=== PATIENT | male | born 1940 | race Caucasian/White ===

== ENCOUNTER → 2016-07-20 | Outpatient (CLI) | payer OTHER ==
[~2016-07-20] MED LIST: ADULT LOW DOSE81 MG PO; ALEVE220 MG PO; AVAPRO300 MG PO; COLACE100 MG PO; HYDROCODONE-AP1 EAC6 PO; IMDUR 60 MG TAB60 M1 PO; LIVALO4 MG PO; LOPRESSOR50 PO; OXYCODONE-APAP1 EAC4 PO; PERCOCET 7.5-31 EACH PO; PLAVIX 75 MG TA75 M1 PO; ROBAXIN 750 MG750 M1 PO; TOPROL XL50 MG PO
[2016-07-20 09:02] LABS: CREATININE 1.8 mg/dL (0.7-1.3)
== END ==
LOC: CAT 08:09
PROVIDERS: Nuclear Medicine Nuclear Cardiology
DX: I71.4 Abdominal aortic aneurysm, without rupture (principal); Z95.828 Presence of other vascular implants and grafts

== ENCOUNTER 2016-11-16 18:16 | Inpatient (IN) | payer OTHER ==
[~2016-11-16] VITALS: Ht 177.8 cm; Wt 84.8 kg
--- NOTE | ~2016-11-16 | S ---
[facility] [place] [address] SURGICAL PATH RPT PROCEDURE Name: DEB GARCIA Room #: 305-P [facility] IN M.R.#: [id number] Admission: 11/16/16 Date of : 36 Discharge: 11/19/16 Report #: [id number] Path Case #: [id number] PATHOLOGY REPORT COLLECTION DATE: 11/18/2016 RECEIVED DATE: 11/21/2016 SUBMITTING PHYS: Dr. Kaiden Oscar OTHER PHYS: Dr. 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 COMMENT: This case is co-reviewed by Dr. Martínez Rosado. PATHOLOGIST: Castillo Lange M.D. REPORT ELECTRONICALLY SIGNED BY: Castillo Lange M.D. DATE/TIME: 11/23/2016 14:46 * * * * * * * * * * * * GROSS PATHOLOGY: Received in formalin labeled "TRENT Haque of papilla," are 2 segments of becerril soft tissue measuring 0.6 x 0.2 x 0.2 cm in aggregate dimensions and ranging from 0.2 to 0.4 cm in maximum dimension. The specimen is submitted entirely in cassette A1. (TSD; 11/21/2016) CLINICAL HISTORY: Pre-OP DX: Jaundice Post OP DX: ERCP, sphincteromy, BX INITIAL CPT CODE(S): A; 59110 Professional services performed by [facility] at [facility] [address] [facility] , [place] [address] Technical services performed by [facility] at [address] [place] [address], [address] [address]. [facility] [address] [place] [address] SURGICAL PATH RPT PROCEDURE Name: DEB GARCIA Room #: 305-P [facility] IN .R.#: [id number] Admission: 11/16/16 Date of : 38 Discharge: 11/19/16 Report #: [id number] Path Case #: [id number] [facility] [address] [address] PHONE: [phone] DIRECTOR: Marco Antonio Rodriguez M.D. * * * END OF REPORT * * *
--- NOTE | ~2016-11-16 | HC ---
[facility] [place] [address] CONSULTATION Name: DEB GARCIA Room #: 305-P [facility] IN .R.#: [id number] Admission: 11/16/16 Attend Phys: Gianni Shields DO Discharge: Date of : 38 Report #: [id number] THIS REPORT FOR: //name// CC: Clint Shields DO DATE OF SERVICE: 11/17/2016 He is a patient of Dr. Clint Ren and Dr. Zana Lucas and Dr. Gianni Shields. CHIEF COMPLAINT: 1. The patient is a very pleasant 76-year-old white male who has been experiencing gradually worsening jaundice that he was unaware of, over the past month. The associated symptoms during that time were pain that developed about 1-1/2 to 2 hours after eating, but sometimes the pain developed without any association with eating, so thoroughly unpredictable. He states his urine has been very dark brown colored and his stools are very light in color or acholic in appearance. He has lost approximately 15 to 20 pounds in the past month unintentionally. He has been trying to figure out ways to eat without having the pain start, but he has been very unsuccessful in nailing down what particular foods are bothering him the most. He also notes that he developed gastroesophageal reflux symptoms after every meals. He states his appetite is good, but he cannot figure out what to eat, to avoid symptoms from developing. This sounds like choledocholithiasis to me. 2. Thoracic aortic aneurysm. 3. Abdominal aortic aneurysm with stent graft. The patient has peripheral vascular disease and peripheral arterial disease. He has stents in both of his femoral arteries. He has in the right and left iliac limbs of the stent grafts. He has bilateral external iliac artery nitinol stents. 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 He has a history of hypertension, [id number] smoking history. He has a coronary artery stent. Because of this peripheral vascular disease and central vascular disease, it may be possible and he has mesenteric ischemia as well. He also has renal insufficiency with a creatinine of 1.9. He has proteinuria. He has a macrocytosis with a hemoglobin of 13, an albumin of 2.5, an AST of 71, ALT is 60, and alkaline phosphatase of 433 and total bilirubin of 11.9. MRCP suggest an impacted distal common bile duct stone. RECOMMENDATIONS: My recommendations are as follows: 1. We will get an MRCP to see if we can see anything further about the pancreas and biliary tree before proceeding to ERCP tomorrow. [place] [address] CONSULTATION Name: DEB GARCIA Room #: 305-P [facility] IN .R.#: [id number] Admission: 11/16/16 Attend Phys: Gianni Shields DO Discharge: Date of : 38 Report #: [id number] tomorrow afternoon. The patient had been on Plavix at home, but it was discontinued while he was in the hospital. I am unsure of the precise last dose that he took. We will need to get this data, in order to nail down the timing of the ERCP. 2. We will check INR, chem profile, CBC. 3. We will start Cipro 200 mg IV piggyback q. 12 hours. Thank you very much once again for allowing me to participate in his care, Dr. Ren, Dr. Lucas and Dr. Shields. <ELECTRONICALLY SIGNED> By: Tiffany Cuenca DO 11/18/16 0705 2306 0511 Tiffany Cuenca DO /nt
--- NOTE | ~2016-11-16 | P ---
[facility] [place] [address] PROCEDURE REPORT Name: DEB GARCIA Lucas Room #: 305-P [facility] IN ..#: [id number] Admission: 11/16/16 Attend Phys: Gianni Shields, Discharge: 11/19/16 Date of : 38 Report #: [id number] THIS REPORT FOR: //name// CC: Clint Shields DO DATE OF SERVICE: 11/18/2016 PROCEDURE PERFORMED: ERCP with sphincterotomy, biopsy and balloon sweep. HISTORY OF PRESENT ILLNESS: The patient is a 76-year-old male with intermittent abdominal pain, noted to be jaundiced. He was transferred to [facility] for further evaluation. Bilirubin here 11.9 yesterday, 12.0 today. AST 61, alk phos 427, ALT is 56, and albumin 2.4. WBC 7.3 and hemoglobin 12.8. He underwent an MRCP yesterday, which shows broad termination of the distal common bile duct with characteristic suggesting a distal impacted stone, no definite pancreatic mass was seen. Plan is for ERCP today. PROCEDURE: The risks and benefits of the procedure were explained to the patient, those risks including, but not limited to bleeding, perforation, the risk of sedation as well as potential risk for post-ERCP pancreatitis. The patient understood these risks and gave informed consent. The procedure was performed in the operating room under general anesthesia. The patient has been on Cipro, but 1 gram of Ancef was given prior to the procedure as well, 50 mg indomethacin rectal suppository was given as well. Next, using a standard Etixinon side-viewing ERCP scope, the scope was placed in the patient's mouth and advanced under direct vision into the second portion of the duodenum, at which point the major papilla was identified next to a duodenal diverticulum. The tip of the major papilla appeared adenomas and abnormal. There was no evidence of bile follow. Next, using a Kwame-Cook 0.025 dome tipped sphincterotome catheter, initially the pancreatic duct was cannulated, mild dilation of the pancreatic duct was noted. I attempted multiple times, eventually I was able to get into the common bile duct. A cholangiogram was then obtained. The common bile duct was significantly dilated throughout down to the level of the papilla. Intrahepatic ducts were dilated as well. No filling defects were noted. At this point, a sphincterotomy was performed and bile began draining. Next, the sphincterotome was removed and a balloon catheter was advanced over the guidewire and several balloon sweeps were performed. There were no stones or debris that was noted on balloon sweeps. A balloon occlusion cholangiogram was obtained, again showing an abrupt stop at the distal common bile duct, which I suspect is due to adenomatous change of the papilla. At this point, the balloon and wire were removed. There was good bile drainage noted. Biopsy of the edge [facility] [address] [place] [address] PROCEDURE REPORT Name: DEB GARCIA Room #: 305-P [facility] IN M.R.#: [id number] Admission: 11/16/16 Attend Phys: Gianni Shields DO Discharge: 11/19/16 Date of : 38 Report #: [id number] of the papilla was obtained. The scope was then withdrawn and the procedure terminated. The patient tolerated the procedure well. IMPRESSION: Markedly dilated intrahepatic ducts as well as a common bile duct down to the level of the papilla. Intraluminally, the major papilla appears to have adenomatous change, I suspect this is causing a blockage at the papilla. Sphincterotomy was performed and there was good bile flow at this time. Biopsies were also obtained. RECOMMENDATIONS: 1. Await biopsies. 2. Follow liver function tests. 3. We will allow area to heal and I would recommend proceeding with an endoscopic ultrasound in the next 3-[address] Quick. Thank you for allowing me to participate in his care. <ELECTRONICALLY SIGNED> By: Kaiden Oscar MD 11/23/16 0802 1744 1852 Kaiden Oscar MD /nt
--- NOTE | ~2016-11-16 | H ---
[facility] [address] [place] [address] HISTORY AND PHYSICAL Name: DEB GARCIA Room #: 305-P [facility] IN M.R.#: [id number] Admission: 11/16/16 Attend Phys: Gianni Shields DO Discharge: Date of : 38 Report #: [id number] THIS REPORT FOR: //name// CC: Clint Shields DATE OF SERVICE: 11/16/2016 ATTENDING PHYSICIAN: Dr. Lucas. PRIMARY CARE PHYSICIAN: Dr. Clint Ren. CHIEF COMPLAINT: Distal common bile duct obstruction. HISTORY OF PRESENT ILLNESS: The patient is a 76-year-old pleasant male, who initially presented to [facility] with complaints of dizziness and near syncope. He said he really has not felt well over the last month. He has had decreased appetite and has been having severe heartburn every time he tries to eat; therefore, he has been cutting back on all oral intake. He has had occasional vomiting. He denies any abdominal pain. He has been feeling dizzy for over the last week. Today he was at [facility] and he had an episode of dizziness that made him sit down because he thought he was going to pass out. He tried to get to his car and drive home, but he felt to weak and dizzy to safely drive home, so he pulled over and had to call for help. He was taken to [facility] and his initial blood pressure was in 90s. He was noted to have significantly elevated bilirubin on the initial labs. Therefore, ultrasound and CT of abdomen were done, which did show biliary ductal dilatation and likely obstruction and he was sent to [facility] for further evaluation. In retrospect, he has noticed that he has been very itchy lately. He had not noticed any rash. His PCP that saw him initially today, pointed out that he was very jaundiced, but the patient had not noticed this himself. He has also had some light colored stools and dark urine. He has lost at least 20 pounds in the last month because of his decreased intake. He has had occasional vomiting when his heartburn has been severe. Denies any diarrhea. Denies any black or bloody stools. He is currently resting comfortably, in no acute distress. PAST MEDICAL HISTORY: Hypertension, chronic kidney disease, abdominal aortic aneurysm, hyperlipidemia. PAST SURGICAL HISTORY: Inguinal hernia repair, tonsillectomy, bilateral femoral stent placement, aortic stent graft, lumbar surgery x 3. ALLERGIES: None. HOME MEDICATIONS: Plavix 75 mg p.o. daily, Livalo 4 mg daily, Imdur [address] [address] HISTORY AND PHYSICAL Name: JOSEDEB Lucas Room #: 305-P [facility] IN M.R.#: [id number] Admission: 11/16/16 Attend Phys: Gianni Shields DO Discharge: Date of : 38 Report #: [id number] daily, metoprolol 50 mg daily, irbesartan 300 mg daily, aspirin 81 mg daily naproxen p.r.n. SOCIAL HISTORY: The patient smokes 1 pack of cigarettes per day, has been smoking for about 50 years. He drinks alcohol very rarely. Denies any drug use. He lives at home alone. He ambulates independently and he remains very active. FAMILY HISTORY: His grandfather had some sort of cancer. His father of brain cancer. His brother of lung cancer. His mother of pneumonia. REVIEW OF SYSTEMS: The patient was previously seen here at [facility] for an infrarenal and iliac artery aneurysms for which he had an aortic stent graft placed about 6-8 months ago. He was noted at that time to have elevated creatinine and by the time of discharge, his creatinine was 1.8. He was supposed to follow up with Nephrology outpatient, but he says he never made that appointment. He denies any history of diabetes. He denies any history of heart disease or coronary stents or any recent chest pain. All other 12-point review of systems was reviewed with the patient, otherwise negative unless stated in the HPI. PHYSICAL EXAMINATION: GENERAL: The patient is an alert male, in no acute distress. VITAL SIGNS: Temperature is 36.4, heart rate 56, respirations 16, blood pressure 132/73, oxygen 98% on room air. HEENT: PERRLA. Sclerae is icteric. Oral mucosa is pink and moist. NECK: Supple, no JVD noted. CARDIAC: Normal S1, S2. No murmurs, rubs or gallops. He is bradycardia. RESPIRATORY: Breath sounds are clear bilaterally. No wheezing or rhonchi. Breathing is nonlabored. ABDOMEN: Flat, nondistended, he is completely nontender with positive bowel sounds. VASCULAR: No edema noted. Pedal pulses are 2+. NEUROLOGIC: The patient is alert and oriented x 3. Speech is clear. He is moving all extremities equally. No focal weakness noted. SKIN: Intact. No open wound or rash noted. He is jaundiced throughout. LABORATORY DATA AND DIAGNOSTICS: WBC is 9.9, hemoglobin 14, platelets 223. Sodium 139, potassium 4.0, BUN 22, creatinine 2.2, glucose 156, anion gap was 19. AST 70, alkaline phos 514, albumin 2.9. Bilirubin 15.9. INR 1.17. Alcohol level was negative. Lipase 137. CT of abdomen showed gallbladder distention with intrahepatic and extrahepatic biliary ductal dilatation without any gallstones. There was question of an obstructive process at the level of the ampulla. Abdominal ultrasound showed intrahepatic biliary ductal dilatation, no liver lesions. There was also dilated common bile duct up to 13 mm. The gallbladder was distended with sludge and stones, but there is no [facility] [address] [place] [address] HISTORY AND PHYSICAL Name: KATHERINEOLIANETTEDEB Lucas Room #: 305-P [facility] IN [facility]#: [id number] Admission: 11/16/16 Attend Phys: Gianni Shields DO Discharge: Date of : 38 Report #: [id number] gallbladder wall thickening. ASSESSMENT AND PLAN: 1. Distal common bile duct obstruction. This may be due to stone versus a mass. This patient does have associated painless jaundice. We will consult GI for further evaluation as he likely need an ERCP. We will keep him n.p.o. and start IV fluids and follow labs. We will provide Benadryl for the itching, check a CA 19-9 tumor marker. 2. Chronic kidney disease stage III. Last known creatinine was 1.8 in 06/2016. He was supposed to follow up with Nephrology outpatient, but he has not, we will start IV fluids and follow labs. 3. . Blood pressure at [place] initially was low, likely due to decreased p.o. intake recently. We will hold his blood pressure meds at this time and continue to monitor. 4. Hyperglycemia. The patient denies any history of diabetes. Check hemoglobin A1c. 5. Ongoing tobacco abuse. The patient has been advised to quit. We will provide a nicotine patch. 6. Recent aortic stent graft and bilateral femoral stents. Continue with Plavix, which will need to be stopped if surgery is needed. 7. Deep venous thrombosis prophylaxis. Place sequential compression devices. We will continue to follow the patient closely throughout the hospitalization and make changes based on clinical status. <ELECTRONICALLY SIGNED> By: RADHA August 11/17/16 0652 0432 0557 RADHA August /timoteo
[2016-11-16 20:00] VITALS: BP 132/73
[2016-11-17] VITALS: BP 139/67
[2016-11-17 04:00] VITALS: BP 137/64
[2016-11-17 06:21] LABS: HEMOGLOBIN 12.5 gm/dL (14.0-18.0); MCH 35.3 pg (26.0-34.0); MCHC 34.8 g/dL (28.0-37.0); MCV 101.4 fL (80.0-100.0); RBC 3.55 mil/uL (4.50-6.00); RDW 15.8 % (10.5-14.5); WBC 6.9 thou/uL (4.0-11.0)
[2016-11-17 06:36] LABS: PROTIME 10.7 Seconds (9.3-11.4)
[2016-11-17 06:42] LABS: ALBUMIN 2.5 g/dL (3.4-5.0); CALCIUM 8.7 mg/dL (8.5-10.1); CREATININE 1.9 mg/dL (0.7-1.3); POTASSIUM 3.6 mmol/L (3.5-5.1); TOTAL BILIRUBIN 11.9 mg/dL (<0.1-1.0); TOTAL PROTEIN 5.9 g/dL (6.4-8.2)
[2016-11-17 07:25] VITALS: BP 140/69
[2016-11-17 10:08] LABS: URINE BILIRUBIN 3+ (Negative); URINE BLOOD TRACE (Negative); URINE COLOR YELLOW; URINE GLUCOSE-RANDOM* TRACE (Negative); URINE KETONES NEGATIVE (Negative); URINE NITRITE NEGATIVE (Negative); URINE PROTEIN (DIPSTICK) 1+ (Negative)
[2016-11-17 10:10] LABS: ICTOTEST (BILI CONFIRMATORY) Positive (Negative)
[2016-11-17 10:14] LABS: AMORPHOUS URATES Few /LPF (None Seen); BACTERIA 1-9 Few /HPF (None Seen); CRYSTALS None Seen /LPF (None Seen); HYALINE CASTS 0-3 Few /LPF (None Seen); SQUAMOUS 0-3 Few /LPF (0-3); URINE RBC None Seen /HPF (0-2); URINE WBC 0-5 Rare /HPF (0-5)
[2016-11-17 15:22] VITALS: BP 153/67
[2016-11-17 19:05] VITALS: BP 145/58
[2016-11-18] VITALS (7 sets, daily range): BP systolic 135–179; BP diastolic 60–78
[2016-11-18 02:11] LABS: GLYCOHEMOGLOBIN (HGB A1C) 4.8 % (4.8-5.6)
[2016-11-18 03:49] LABS: ALBUMIN 2.4 g/dL (3.4-5.0); DIRECT BILIRUBIN 9.8 mg/dL (<0.1-0.3)
[2016-11-18 04:01] LABS: ABSOLUTE NEUTROPHILS 4.8 thou/uL (1.4-8.2); BASOPHILS 0.7 % (0.0-2.0); EOSINOPHILS 4.3 % (0.0-3.0); HEMATOCRIT 36.8 % (42.0-52.0); HEMOGLOBIN 12.8 gm/dL (14.0-18.0); MCH 35.4 pg (26.0-34.0); MCHC 34.8 g/dL (28.0-37.0); MCV 101.7 fL (80.0-100.0); MONOCYTES 9.4 % (1.0-8.0); PLATELET COUNT 214 thou/uL (150-400); POLYS 65.6 % (36.0-66.0); RBC 3.61 mil/uL (4.50-6.00); WBC 7.3 thou/uL (4.0-11.0)
[2016-11-18 04:33] LABS: MANUAL DIFF NO
[2016-11-19 03:43] VITALS: BP 129/60
[2016-11-19 06:57] VITALS: BP 158/73
[2016-11-19 07:17] LABS: HEMATOCRIT 36.7 % (42.0-52.0); HEMOGLOBIN 12.8 gm/dL (14.0-18.0); MCH 35.4 pg (26.0-34.0); MCHC 34.9 g/dL (28.0-37.0); MCV 101.5 fL (80.0-100.0); RBC 3.61 mil/uL (4.50-6.00); RDW 16.7 % (10.5-14.5); WBC 6.7 thou/uL (4.0-11.0)
[2016-11-19 07:28] LABS: ALBUMIN 2.4 g/dL (3.4-5.0); CALCIUM 8.5 mg/dL (8.5-10.1); CREATININE 1.7 mg/dL (0.7-1.3); POTASSIUM 3.7 mmol/L (3.5-5.1); TOTAL BILIRUBIN 13.9 mg/dL (<0.1-1.0)
[2016-11-19 08:08] LABS: TOTAL PROTEIN 6.1 g/dL (6.4-8.2)
[2016-11-19 12:07] VITALS: BP 158/73
== END 2016-11-19 12:36 | disposition home or self-care (01) | DRG 444 ==
LOC: 3N 18:16
PROVIDERS: Hospitalist; Internal Medicine Gastroenterology; Nurse Practitioner Acute Care
DX: K80.51 Calculus of bile duct without cholangitis or cholecystitis with obstruction (principal); E43 Unspecified severe protein-calorie malnutrition; I12.9 Hypertensive chronic kidney disease with stage 1 through stage 4 chronic kidney disease, or unspecified chronic kidney disease; E78.5 Hyperlipidemia, unspecified; F17.210 Nicotine dependence, cigarettes, uncomplicated; N18.3 Chronic kidney disease, stage 3 (moderate); I73.9 Peripheral vascular disease, unspecified; E78.00 Pure hypercholesterolemia, unspecified; I25.10 Atherosclerotic heart disease of native coronary artery without angina pectoris; I71.2 Thoracic aortic aneurysm, without rupture; Z90.49 Acquired absence of other specified parts of digestive tract; Z80.8 Family history of malignant neoplasm of other organs or systems; Z83.6 Family history of other diseases of the respiratory system; Z98.42 Cataract extraction status, left eye; Z98.41 Cataract extraction status, right eye; Z68.26 Body mass index [BMI] 26.0-26.9, adult; Z95.5 Presence of coronary angioplasty implant and graft
CPT/HCPCS: 10096; 62110; 62900; 70005

== ENCOUNTER 2016-11-25 13:57 | Inpatient (IN) | payer OTHER ==
[~2016-11-25] VITALS: Ht 177.8 cm; Wt 88.2 kg
--- NOTE | ~2016-11-25 | HC ---
[facility] [place] [address] CONSULTATION Name: STEVEANETTEDEB D Room #: 440-P [facility] IN .R.#: [id number] Admission: 11/25/16 Attend Phys: Ricky Rice MD Discharge: 11/30/16 Date of : 38 Report #: [id number] THIS REPORT FOR: //name// CC: Dr. Clint Rice REASON FOR CONSULTATION: The patient is a 76-year-old male with worsening jaundice. HISTORY OF PRESENT ILLNESS: This patient was admitted to [facility] about a week ago. He was found to have obstructive jaundice. Interestingly, he did not have severe pain, but described a heartburn pain in the epigastrium, which has been worsening in the past 4-5 weeks. He underwent evaluation and was found to have a dilated biliary tree. He underwent an ERCP by Dr. Oscar a week ago today. He is noted to have a prominent papilla, which was biopsied. Biopsies revealed this to be a villous adenoma, but there was no evidence of high grade dysplasia or malignancy. A sphincterotomy was completed. Dr. Oscar did multiple balloon sweeps of the duct and no stones or filling defects were identified. He noted there was excellent drainage following the sphincterotomy. The patient went home, reports that initially he thought he was doing better, but now he is becoming more and more jaundiced. He is having more and more pruritus. He contacted the office and was directed to the Emergency Room where he was evaluated today. Laboratory studies today revealed that his bilirubin was ____ last week and is now 17.8. His alkaline phosphatase was 429, now 532. His AST is a little higher at 78 and ALT is normal at 61. He also reports that he has lost about 15 pounds in the recent months. Ultrasound of the abdomen today revealed a distended gallbladder with sludge with intrahepatic and extrahepatic ductal dilation, raising the possibility of a distal duct obstruction. He has not had any fever or chills. PAST MEDICAL HISTORY: He has had a high blood pressure. He has peripheral vascular disease and stents in his legs and his aorta. He has elevated lipids. He has been a long-term cigarette smoker. PAST SURGICAL HISTORY: Tonsillectomy, lumbar discectomy, cataract surgery, oral surgeries, stent placement in the aorta and femoral arteries. ALLERGIES: No known drug allergies. USUAL MEDICATIONS: Metoprolol 50 mg daily, Plavix 75 mg daily, aspirin 81 mg daily, Livalo 4 mg daily, Avapro 300 mg daily, Imdur 60 mg daily, naproxen 220 mg as needed. FAMILY HISTORY: No family history of colon cancer or ulcer disease. [address] [address] CONSULTATION Name: DEB GARCIA Room #: 440-P [facility] IN ..#: [id number] Admission: 11/25/16 Attend Phys: Ricky Rice MD Discharge: 11/30/16 Date of : 38 Report #: [id number] SOCIAL HISTORY: He continues to smoke. He does not consume alcohol. REVIEW OF SYSTEMS: GENERAL: No change in weight, fever or chills. CENTRAL NERVOUS SYSTEM: No weakness, numbness or loss of consciousness. ENT: No change in vision or hearing or sores in the mouth. PULMONARY: long term care administrator smoker. He denies cough at this time. CARDIOVASCULAR: No chest pain, chest tightness, but he does have significant peripheral vascular disease and aortic vascular disease. GASTROINTESTINAL: Increasing heartburn symptoms. GENITOURINARY: Without dysuria or pyuria. MUSCULOSKELETAL: Previous back surgery. No arthralgias or myalgias at this time. SKIN: Pruritus with the jaundice. HEMATOLOGIC: No bruising, bleeding or malignancies. ENDOCRINE: He is not aware of diabetes or thyroid problems. PHYSICAL EXAMINATION GENERAL: The patient is a well-developed, well-nourished, pleasant male in no acute distress. He is markedly jaundiced. VITAL SIGNS: Blood pressure 138/62. HEENT: He is anicteric. Pupils equal and round. Oropharynx clear. NECK: Supple. CHEST: Clear. HEART: Regular rate and rhythm, normal S1 and normal S2. ABDOMEN: Normal bowel sounds, soft, nontender, without hepatosplenomegaly or masses. RECTAL: Not done. EXTREMITIES: Without cyanosis, clubbing, edema. ASSESSMENT: 1. Obstructive jaundice, worsening. 2. Villous adenoma of the duodenal papilla, status post sphincterotomy. 3. Peripheral vascular disease. 4. Chronic obstructive pulmonary disease. COMMENT: Discussed with Dr. Oscar. He will see the patient tomorrow and likely place a biliary stent. Ultimately, he will need further evaluation such as endoscopic ultrasound and may be a papillectomy due to the villous changes of the duodenal papilla. Even though the biopsies were benign, there still may be a malignancy within the papilla. PLAN: 1. ERCP with stent placement tomorrow. [facility] [address] [place] [address] CONSULTATION Name: DEB GARCIA Lucas Room #: 440-P [facility] IN M.R.#: [id number] Admission: 11/25/16 Attend Phys: Ricky Rice MD Discharge: 11/30/16 Date of : 38 Report #: [id number] 2. IV antibiotics. 3. Atarax for itching. <ELECTRONICALLY SIGNED> By: Craig Damon MD 12/01/16 1200 1842 1921 Craig Damon MD /nt
--- NOTE | ~2016-11-25 | H ---
[facility] [place] [address] HISTORY AND PHYSICAL Name: JOSEDEB Lucas Room #: 410-P [facility] IN .R.#: [id number] Admission: 11/25/16 Attend Phys: Ricky Rice MD Discharge: Date of : 36 Report #: [id number] THIS REPORT FOR: //name// CC: Clint Rice DATE OF SERVICE: 11/25/2016 CHIEF COMPLAINT: Jaundice, itching, and heartburn. HISTORY OF PRESENT ILLNESS: The patient is a 76-year-old man who was admitted here on 11/17/2016 for painless jaundice. His bilirubin was 13.9 at that time. The patient had MRCP, that showed distal bile duct obstruction. ERCP was performed, that showed no stone, and the patient has sphincterotomy, with balloon dilation. 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 CA 19-9 levels are elevated at 91. The patient went home in stable condition. A few days ago, he noticed worsening in his jaundice, as well as worsening in itching. The patient developed heartburn, abdominal distention, and nausea. He denies vomiting. He has no other complaints. In the Emergency Room, his total bilirubin is elevated again at 17.8, from 13.9 during last admission about a week ago. Alkaline phosphatase is also higher at 532, from 429. PAST MEDICAL HISTORY: 1. Hypertension. 2. Peripheral vascular disease, bilateral femoral stents. 3. Dyslipidemia. 4. AAA repair earlier this year. 5. Chronic kidney disease, stage 3. CURRENT MEDICATIONS: Include Plavix, Avapro, Imdur, metoprolol, naproxen as needed, and Livalo. FAMILY HISTORY: Reviewed and not pertinent to the patient's current condition. SOCIAL HISTORY: The patient is a current smoker. He does not drink alcohol. REVIEW OF SYSTEMS: As above in HPI section, all others negative. PHYSICAL EXAMINATION: GENERAL: The patient is an elderly man who is in no apparent distress. He has severe jaundice. VITAL SIGNS: Blood pressure is 142/58, heart rate is 79, respiration is 20 and [facility] [address] [address] HISTORY AND PHYSICAL Name: STEVEANETTEDEB D Room #: 410-P [facility] IN [facility]#: [id number] Admission: 11/25/16 Attend Phys: Ricky Rice MD Discharge: Date of : 36 Report #: [id number] temperature is 97.9. HEENT: Pupils are equal. Eye movements are normal. The patient has significant scleral icterus. NECK: Supple. The patient has no thyromegaly. He has no JVD. Carotid bruits are not appreciated. RESPIRATORY: The patient has clear respiratory sounds bilaterally. CARDIOVASCULAR: The patient has regular rhythm and rate. He has no murmurs, gallops or rubs. GASTROINTESTINAL: Abdomen is slightly distended. Edge of the liver is palpated. Bowel sounds are present. MUSCULOSKELETAL: The patient has no joint deformities. He has no edema, cyanosis or clubbing. SKIN: The patient has no skin lesions. He has significant jaundice throughout. LABORATORY DATA: Basic metabolic profile shows stable creatinine at 1.8. AST 78, which is slightly higher than a week ago. Total bilirubin is high at 17.8, from 13.9 week ago. Alkaline phosphatase high at 532, from 429. ALT is normal at 61. GFR is 37. CBC with differential is essentially normal, except with chronic anemia, with hemoglobin of 13.2. Urinalysis shows bilirubinuria, and trace ketones, and trace nitrites. WBC is absent. ASSESSMENT AND PLAN: 1. Obstructive jaundice. As noticed, the patient had evaluation about a week ago. He had MRCP, that showed distal bile duct obstruction, as well as he had ERCP with sphincterotomy and biopsies. Biopsy was consistent with adenoma. CA 19-9 levels are insignificantly elevated. The patient comes with recurrent symptoms, and higher bilirubin than previously. His bilirubin now is 17.8, from 13.9. GI, General Surgery teams are consulted. Input is very much appreciated. 2. Nausea and itching related to above. Symptomatic treatment will be continued. 3. Hypertension. Acceptable control. We will avoid Avapro at this time, given the patient's chronic kidney disease. 4. Chronic kidney disease, stage 3. Naproxen will be avoided. 5. Deep venous thrombosis prophylaxis. Avoid anticoagulation for now, for anticipated procedure and possible repeat ERCP. Hold Plavix as well. By: [id number] Ricky Rice MD /nt
--- NOTE | ~2016-11-25 | P ---
[facility] [place] [address] PROCEDURE REPORT Name: DEB GARCIA Lucas Room #: 410-P ADM IN M.R.#: [id number] Admission: 11/25/16 Attend Phys: Ricky Rice MD Discharge: Date of : 36 Report #: [id number] THIS REPORT FOR: //name// CC: Clint Rice MD DATE OF SERVICE: 11/26/2016 PROCEDURE PERFORMED: ERCP with stent placement and bleeding control. HISTORY OF PRESENT ILLNESS: The patient is a 76-year-old male who underwent an ERCP by myself a week ago, on Monday for obstructive jaundice. At that time, he had a bilirubin in the 12-14 range. MRCP showed an abrupt tapered distal common bile duct. No obvious masses were noted in the pancreas or liver. On ERCP, I noted that the major papilla was abnormal and there was no good bile drainage. A biopsy of the major papilla came back as adenomatous tissue, no dysplasia. A sphincterotomy was performed at that time and there was good bile drainage noted after sphincterotomy. The plan was then to have the patient undergo an endoscopic ultrasound in the next few weeks once a sphincterotomy site had healed. However, he began having increasing symptoms of not feeling well in general, some abdominal pain and increased pruritus. Therefore, he was evaluated yesterday and admitted. He was noted to have further elevation in his bilirubin with a total bili of 17.8. He has now been placed on IV antibiotics. The plan is for repeat ERCP. DESCRIPTION OF PROCEDURE: The risks and benefits of the procedure were explained to the patient, those risks including but not limited to bleeding, perforation, the risk of sedation. He understood these risks and gave informed consent. The procedure was performed under general anesthesia. The patient is already on IV antibiotics, 50 mg indomethacin rectal suppository was given prior to the procedure as well. Next, using a standard Fujinon side-viewing ERCP scope, the scope was placed in the patient's mouth and advanced under direct vision through the esophagus, stomach and into the second portion of the duodenum, at which point, multiple small ulcerations were noted in the duodenal bulb. There was bright red blood in the second portion of the duodenum. I was able to wash and aspirate this area. There appears to be mild oozing from the papilla, possibly from the biopsy site or the previous sphincterotomy site, it was unclear but first clot was noted in this area. Next, using a Kwame-Cook 0.025 dome tipped sphincterotome catheter, the common bile duct was cannulated and a cholangiogram was obtained. No obvious filling defect was noted within the common bile duct. At this point, I was able to advance a guidewire up into the intrahepatic ducts. Again, the common bile duct and the intrahepatic ducts were significantly dilated. Next, a 10-Amharic x 7 cm biliary stent was put in place without difficulty. There was good bile drainage noted after the stent was placed. Next, I injected the edge of the papilla with epinephrine at this [facility] [address] [place] [address] PROCEDURE REPORT Name: DEB GARCIA Room #: 410-P [facility] IN ..#: [id number] Admission: 11/25/16 Attend Phys: Ricky Rice MD Discharge: Date of : 36 Report #: [id number] point, a total of 2.5 mL. There was no further bleeding at that point. The scope was then withdrawn and the procedure terminated. The patient tolerated the procedure well. IMPRESSION: 1. Active bleeding from previous biopsy or sphincterotomy site near the papilla. 2. Status post biliary stent placement, now with good bile drainage. RECOMMENDATIONS: 1. Observe the patient post-procedure. 2. We will monitor liver function tests and hemoglobin. 3. We will discontinue aspirin. 4. The patient needs an endoscopic ultrasound again in the near future. Thank you for allowing me to participate in his care. <ELECTRONICALLY SIGNED> By: Kaiden Oscar MD 11/27/16 1030 [id number] Kaiden Oscar MD /nt
[2016-11-25 13:59] VITALS: BP 142/58
[2016-11-25 14:58] LABS: ABSOLUTE NEUTROPHILS 7.5 thou/uL (1.4-8.2); BASOPHILS 0.5 % (0.0-2.0); EOSINOPHILS 1.4 % (0.0-3.0); HEMATOCRIT 38.1 % (42.0-52.0); HEMOGLOBIN 13.2 gm/dL (14.0-18.0); LYMPHOCYTES 13.4 % (24.0-44.0); MANUAL DIFF NO; MCH 35.3 pg (26.0-34.0); MCHC 34.8 g/dL (28.0-37.0); MCV 101.5 fL (80.0-100.0); PLATELET COUNT 227 thou/uL (150-400); POLYS 76.7 % (36.0-66.0); RBC 3.75 mil/uL (4.50-6.00); RDW 17.3 % (10.5-14.5); WBC 9.8 thou/uL (4.0-11.0)
[2016-11-25 15:06] LABS: CALCIUM 9.4 mg/dL (8.5-10.1); CREATININE 1.8 mg/dL (0.7-1.3); POTASSIUM 4.3 mmol/L (3.5-5.1)
[2016-11-25 15:10] LABS: INR 1.1; PROTIME 11.6 Seconds (9.3-11.4)
[2016-11-25 15:12] LABS: ALBUMIN 2.4 g/dL (3.4-5.0); TOTAL BILIRUBIN 17.8 mg/dL (<0.1-1.0); TOTAL PROTEIN 6.4 g/dL (6.4-8.2)
[2016-11-25 15:48] LABS: URINE BILIRUBIN 3+ (Negative); URINE BLOOD NEGATIVE (Negative); URINE COLOR BROWN; URINE GLUCOSE-RANDOM* TRACE (Negative); URINE KETONES TRACE (Negative); URINE NITRITE POSITIVE (Negative); URINE PROTEIN (DIPSTICK) 1+ (Negative)
[2016-11-25 15:55] LABS: ICTOTEST (BILI CONFIRMATORY) Positive (Negative)
[2016-11-25 16:08] LABS: CASTS None Seen /LPF (None Seen); SQUAMOUS 0-3 Few /LPF (0-3)
[2016-11-25 16:10] LABS: BACTERIA 1-9 Few /HPF (None Seen); CRYSTALS None Seen /LPF (None Seen); URINE RBC 0-2 Rare /HPF (0-2); URINE WBC 0-5 Rare /HPF (0-5)
[2016-11-25 17:08] LABS: TSH 1.602 uIU/mL (0.358-3.740)
[2016-11-25 17:36] VITALS: BP 138/62
[2016-11-25 18:35] VITALS: BP 130/67
[2016-11-26] VITALS (8 sets, daily range): BP systolic 128–194; BP diastolic 60–98
[2016-11-26 03:30] LABS: BASOPHILS 0.8 % (0.0-2.0); HEMATOCRIT 34.6 % (42.0-52.0); LYMPHOCYTES 14.2 % (24.0-44.0); MCH 35.1 pg (26.0-34.0); MCHC 34.6 g/dL (28.0-37.0); MCV 101.6 fL (80.0-100.0); MONOCYTES 10.7 % (1.0-8.0); PLATELET COUNT 230 thou/uL (150-400); POLYS 72.3 % (36.0-66.0); RBC 3.41 mil/uL (4.50-6.00); RDW 17.2 % (10.5-14.5); WBC 8.3 thou/uL (4.0-11.0)
[2016-11-26 03:32] LABS: MANUAL DIFF NO
[2016-11-26 03:50] LABS: ALBUMIN 2.1 g/dL (3.4-5.0); CALCIUM 8.8 mg/dL (8.5-10.1); CREATININE 1.5 mg/dL (0.7-1.3); POTASSIUM 4.6 mmol/L (3.5-5.1); TOTAL PROTEIN 5.6 g/dL (6.4-8.2)
[2016-11-27 04:18] VITALS: BP 116/80
[2016-11-27 04:33] LABS: ABSOLUTE NEUTROPHILS 4.1 thou/uL (1.4-8.2); BASOPHILS 0.8 % (0.0-2.0); EOSINOPHILS 2.9 % (0.0-3.0); HEMATOCRIT 28.8 % (42.0-52.0); HEMOGLOBIN 10.3 gm/dL (14.0-18.0); LYMPHOCYTES 21.6 % (24.0-44.0); MCH 36.3 pg (26.0-34.0); MCHC 35.6 g/dL (28.0-37.0); MCV 101.9 fL (80.0-100.0); MONOCYTES 10.2 % (1.0-8.0); PLATELET COUNT 196 thou/uL (150-400); POLYS 64.5 % (36.0-66.0); RBC 2.83 mil/uL (4.50-6.00); RDW 17.1 % (10.5-14.5); WBC 6.4 thou/uL (4.0-11.0)
[2016-11-27 04:37] LABS: MANUAL DIFF NO
[2016-11-27 04:47] LABS: ALBUMIN 1.9 g/dL (3.4-5.0); CALCIUM 8.4 mg/dL (8.5-10.1); CREATININE 1.7 mg/dL (0.7-1.3); DIRECT BILIRUBIN 11.5 mg/dL (<0.1-0.3); POTASSIUM 4.4 mmol/L (3.5-5.1); TOTAL BILIRUBIN 13.9 mg/dL (<0.1-1.0); TOTAL PROTEIN 4.8 g/dL (6.4-8.2)
[2016-11-27 08:00] VITALS: BP 114/40
[2016-11-27 16:00] VITALS: BP 116/61
[2016-11-27 19:00] VITALS: BP 121/56
[2016-11-28 04:38] VITALS: BP 124/65
[2016-11-28 06:19] LABS: ABSOLUTE NEUTROPHILS 5.4 thou/uL (1.4-8.2); BASOPHILS 0.5 % (0.0-2.0); HEMOGLOBIN 10.8 gm/dL (14.0-18.0); LYMPHOCYTES 13.8 % (24.0-44.0); MCH 35.6 pg (26.0-34.0); MCHC 34.7 g/dL (28.0-37.0); MCV 102.7 fL (80.0-100.0); MONOCYTES 10.3 % (1.0-8.0); PLATELET COUNT 225 thou/uL (150-400); POLYS 73.4 % (36.0-66.0); RBC 3.02 mil/uL (4.50-6.00); RDW 17.2 % (10.5-14.5); WBC 7.3 thou/uL (4.0-11.0)
[2016-11-28 06:38] LABS: MANUAL DIFF NO
[2016-11-28 06:41] LABS: CALCIUM 8.5 mg/dL (8.5-10.1); CREATININE 1.6 mg/dL (0.7-1.3); POTASSIUM 3.9 mmol/L (3.5-5.1); TOTAL BILIRUBIN 16.1 mg/dL (<0.1-1.0)
[2016-11-28 07:34] LABS: TOTAL PROTEIN 5.5 g/dL (6.4-8.2)
[2016-11-28 20:05] VITALS: BP 147/55
[2016-11-29 04:12] VITALS: BP 120/61
[2016-11-29 06:22] LABS: HEMATOCRIT 31.9 % (42.0-52.0); HEMOGLOBIN 11.1 gm/dL (14.0-18.0); MCH 35.4 pg (26.0-34.0); MCHC 34.8 g/dL (28.0-37.0); MCV 101.9 fL (80.0-100.0); RBC 3.13 mil/uL (4.50-6.00); RDW 17.1 % (10.5-14.5); WBC 7.9 thou/uL (4.0-11.0)
[2016-11-29 06:40] LABS: ALBUMIN 2.1 g/dL (3.4-5.0); DIRECT BILIRUBIN 13.5 mg/dL (<0.1-0.3); TOTAL BILIRUBIN 15.8 mg/dL (<0.1-1.0)
[2016-11-29 07:14] LABS: TOTAL PROTEIN 5.9 g/dL (6.4-8.2)
[2016-11-29 09:10] VITALS: BP 145/61
[2016-11-29 11:32] VITALS: BP 144/52
[2016-11-29 16:00] VITALS: BP 120/45
[2016-11-29 21:26] VITALS: BP 138/59
[2016-11-30 05:07] VITALS: BP 119/48
[2016-11-30 07:36] VITALS: BP 119/48
[2016-11-30 08:00] VITALS: BP 120/74
[2016-11-30] MEDS ORDERED: FELODIPINE 5 MG5 M1 PO (08:58)
[2016-11-30] MEDS ORDERED: PROTONIX 20 MG20 M1 PO (08:58)
[2016-11-30] MEDS ORDERED: HYDROXYZINE HCL25 M1 PO (09:53)
[2016-11-30] MEDS ORDERED: CIPRO500 MG PO (09:53)
== END 2016-11-30 10:25 | disposition home or self-care (01) | DRG 444 ==
LOC: ER 13:57 → EROBS 15:42 → 4N 15:42 → 4S 11-29 11:39 → ENTRNSPT 11-30 10:11 → 4S 11-30 10:25
PROVIDERS: Internal Medicine Endocrinology, Diabetes & Metabolism; Nurse Practitioner Family; Specialist
PROC: 0F798DZ Dilation of Common Bile Duct with Intraluminal Device, Via Natural or Artificial Opening Endoscopic (ICD-10-PCS; principal; 2016-11-26)
DX: K83.1 Obstruction of bile duct (principal); E43 Unspecified severe protein-calorie malnutrition; N39.0 Urinary tract infection, site not specified; N17.9 Acute kidney failure, unspecified; I73.9 Peripheral vascular disease, unspecified; F17.210 Nicotine dependence, cigarettes, uncomplicated; I12.9 Hypertensive chronic kidney disease with stage 1 through stage 4 chronic kidney disease, or unspecified chronic kidney disease; J44.9 Chronic obstructive pulmonary disease, unspecified; E78.5 Hyperlipidemia, unspecified; N18.3 Chronic kidney disease, stage 3 (moderate); D36.9 Benign neoplasm, unspecified site; D48.9 Neoplasm of uncertain behavior, unspecified; L29.9 Pruritus, unspecified; Z90.49 Acquired absence of other specified parts of digestive tract; Z98.42 Cataract extraction status, left eye; Z98.41 Cataract extraction status, right eye; Z23 Encounter for immunization; Z68.27 Body mass index [BMI] 27.0-27.9, adult
CPT/HCPCS: 10091; 10102; 62110; 62900; 70005